=== PATIENT | male | born 1950 | race Caucasian/White ===

== ENCOUNTER 2016-07-10 05:43 | Observation (INO) | payer BC, MEDICARE ==
[2016-07-03 11:10] LABS: BASOPHILS 0.1 %; BASOPHILS ABSOLUTE 0.01 10/3/uL (0.0-0.16); EOSINOPHILS 1.8 %; EOSINOPHILS ABSOLUTE 0.14 10/3/uL (0.0-0.53); HEMATOCRIT 45.6 % (40.0-51.0); HEMOGLOBIN 15.8 g/dL (13.6-17.8); IMMATURE GRANULOCYTES 0.1 %; IMMATURE GRANULOCYTES ABSOLUTE 0.01 10/3/uL (0.0-0.11); LYMPHOCYTES ABSOLUTE 1.83 10/3/uL (0.67-4.30); MEAN CORPUS HGB CONC 34.6 g/dL (32.0-36.0); MEAN CORPUSCULAR VOLUME 89.6 fL (80-100); MONOCYTES 7.1 %; MONOCYTES ABSOLUTE 0.54 10/3/uL (0.21-1.20); NEUTROPHILS 66.9 %; NEUTROPHILS ABSOLUTE 5.09 10/3/uL (2.02-8.40); PLATELET COUNT 202 10/3/uL (150-400); RBC DISTRIBUTION WIDTH 12.8 % (12.0-16.0); RED CELL COUNT 5.09 10/6/uL (4.7-6.1); WHITE BLOOD CELLS 7.6 10/3/uL (4.5-10.5)
[2016-07-03 11:12] LABS: MANUAL DIFF NO %
[2016-07-03 11:15] LABS: INTERNATIONAL NORMAL RATI 1.1 UNITS (-); PARTIAL THROMBO TIME 29.2 SEC (22.5-37.2); PROTIME (NOT ORD) 13.6 SEC (12.0-14.5)
[2016-07-03 11:25] LABS: CHLORIDE, SERUM 104 MMOL/L (96-112); CREATININE 0.77 MG/DL (0.70-1.30); GFR AFRICAN AMERICAN 110 ML/MIN (>=60); GFR NON AFRICAN AMERICAN 95 ML/MIN (>=60); SODIUM, SERUM 143 MMOL/L (135-148)
[2016-07-03 11:26] LABS: BUN (BLOOD UREA NITROGEN) 14 MG/DL (6-23); CALCIUM, SERUM 9.5 MG/DL (8.5-10.4); CO2 (CARBON DIOXIDE) 31 MMOL/L (24-34); GLUCOSE, SERUM 98 MG/DL (60-99)
[2016-07-03 13:34] LABS: ASCORBIC ACID (UR NOT ORDER) 20 (NEG); BILIRUBIN, URINE NEGATIVE (NEG); KETONE, URINE NEGATIVE (NEG); LEUKOCYTE ESTERASE(NOT OR NEG (NEG); WBC (NOT ORDERED) (RFLEX) 1 (0-5)
--- NOTE | ~2016-07-10 | HP ---
History And Physical [address] [place]. [address] NAME: TYRONE MICHEL JR : 52 STATUS : REG [facility]#: [id number] AGE: 66 ADM/REG DATE : 07/10/16 MR#: [id number] REPORT SERV DATE: 07/10/16 DICTATED BY: ANDREW KAT DATE: 07/10/16 REPORT STATUS : Draft TRANSCRIBED BY: MODL DATE: 07/10/16 DATE OF ADMISSION: 07/10/2016 CHIEF COMPLAINT: Adenocarcinoma of the prostate, clinical stage T1c, [place] score 3+4=7, maximum PSA of 6.34. HISTORY OF PRESENT ILLNESS: Mr. Michel is a 66-year-old male recently diagnosed with adenocarcinoma of the prostate. Elevated PSA of 6.34 led to the biopsies. Biopsy revealed Rafa score 3+4 from the left mid and right mid. Different treatment options regarding the management of prostate cancer were proposed to the patient. He decided to proceed with laparoscopic robot-assisted radical prostatectomy. He will be admitted after that procedure. PAST MEDICAL HISTORY: Significant for hypertension. PAST SURGICAL HISTORY: None. MEDICATIONS: Amlodipine, tamsulosin, fish oil, pantoprazole. ALLERGIES: NO KNOWN DRUG ALLERGIES. SOCIAL HISTORY: Denies drug, alcohol, or tobacco abuse. FAMILY HISTORY: Negative for prostate cancer. REVIEW OF SYSTEMS: Negative for strokes, seizures, chest pain, or shortness of breath. Positive for erectile dysfunction. PHYSICAL EXAMINATION: GENERAL: Shows a well-developed, well-nourished white male, in no acute distress. He is awake, alert, and oriented x3. VITAL SIGNS: He is afebrile. His vital signs are stable. HEENT: Sclerae anicteric. NECK: Supple. LUNGS: Clear. HEART: Regular rate and rhythm. ABDOMEN: Soft and nontender. No palpable abdominal masses. : Penis normal. Testes, descended and nontender. Prostate barely palpable. EXTREMITIES: Lower extremities, no deformities. IMPRESSION: Adenocarcinoma of the prostate, clinical stage T1c, Rafa score 3+4=7, maximum PSA of 6.34. PLAN: Laparoscopic robot-assist radical prostatectomy. Potential complications of bleeding, infection, urinary incontinence, bladder neck obstruction, loss of ejaculate, worsened History And Physical [address] [place]. [address] NAME: TYRONE MICHEL JR : 52 STATUS : REG [facility] [place] PAT#: [id number] AGE: 66 ADM/REG DATE : 07/10/16 MR#: [id number] REPORT SERV DATE: 07/10/16 DICTATED BY: ANDREW KAT DATE: 07/10/16 REPORT STATUS : Draft TRANSCRIBED BY: MODL DATE: 07/10/16 erectile dysfunction, and injury to adjacent structures such as bladder, ureters, rectum, colon, intestine, nerves have all been explained to the patient. He both manually and verbally consents to proceed. PF/MODL Andrew Kat M.D. / [id number] CC: Leonardo Kilpatrick PA-C
--- NOTE | ~2016-07-10 | OP ---
Record Of Operation [facility] [address] [place]. [address] NAME: TYRONE MICHEL JR : 52 STATUS : REG [facility] PAT#: [id number] AGE: 66 ADM/REG DATE : 07/10/16 MR#: [id number] REPORT SERV DATE: 07/10/16 DICTATED BY: ANDREW KAT DATE: 07/10/16 REPORT STATUS : Draft TRANSCRIBED BY: MODL DATE: 07/10/16 DATE OF PROCEDURE: 07/10/2016 PREOPERATIVE DIAGNOSIS: Adenocarcinoma of the prostate, clinical stage T1c, [place] score 3+4=7, maximum PSA of 6.34. POSTOPERATIVE DIAGNOSIS: Adenocarcinoma of the prostate, clinical stage T1c, [place] score 3+4=7, maximum PSA of 6.34 PROCEDURE: Laparoscopic robot-assisted radical prostatectomy. SURGEON: Andrew Kat M.D. FLIPPING MACHINE OPERATOR: Americo Lee. ANESTHESIA: General. BLOOD LOSS: Estimated at 100 mL. FLUID REPLACEMENT: 3 L of crystalloid. DRAINS: 18-Belgian Kat catheter per urethra and 15 mm David drain in prevesical space. INDICATION: Mr. Michel is a 66-year-old male, who has recently been diagnosed with adenocarcinoma of the prostate. Different treatment options were proposed to the patient. He has decided to proceed with laparoscopic robot-assisted radical prostatectomy. TECHNIQUE: The patient was identified, brought to the operating room, administered general anesthetic agent by the Anesthesia Service, and intubated. He was positioned in dorsal lithotomy position, appropriately padded, and secured to the table. The abdomen was previously clipped. The entire abdomen, penis, groin, scrotum, and perineum were prepped and draped in usual sterile fashion. A 16-Belgian Kat catheter was passed in the bladder and left to drainage. All laparoscopic port sites were first infiltrated with 0.5% Marcaine plain. Jaky technique was used to place a balloon trocar above the umbilicus. I then placed three robot arm ports and two paperhanger assistant ports under direct vision. Once the ports were in position, da Keiry robot was brought to the table and mated to the ports. Some adhesions between the cecum and the left and the right lower quadrants with the anterior bowel wall were taken down sharply. Adhesions between the sigmoid colon and left pelvic sidewall were taken down sharply. The peritoneum was opened in the cul-de-sac as it overlaid the seminal structures. The left and right vasa deferentia were dissected out, clipped proximally, and transected distally. The left and right seminal vesicles were dissected out. Denonvilliers fascia was opened sharply, and the rectum was swept off the undersurface of the prostate all the way out to the apex. I began to dissect the neurovascular bundles off the posterior pedicles bilaterally. Record Of Operation [facility] [address] [place]. [address] NAME: TYRONE MICHEL JR : 52 STATUS : REG [facility] PAT#: [id number] AGE: 66 ADM/REG DATE : 07/10/16 MR#: [id number] REPORT SERV DATE: 07/10/16 DICTATED BY: ANDREW KAT DATE: 07/10/16 REPORT STATUS : Draft TRANSCRIBED BY: ZURI DATE: 07/10/16 I then divided medial umbilical ligaments and the urachus and swept the bladder off the anterior abdominal wall and symphysis pubis. The peritoneum was opened just lateral to the medial umbilical ligaments on each side of the vasa deferentia bilaterally. Fat overlying the prostate gland was taken off with sharp dissection. The endopelvic fascia was pierced sharply at the prostatovesical junction and carried distally out to the puboprostatic ligaments bilaterally. Attachments of the striated sphincter were taken sharply off the apex of the prostate. The dorsal venous complex was isolated and secured with laparoscopic AUGUSTINE stapling device. It was oversewn with 3-0 PDS. I then mobilized neurovascular bundles off the apex of the prostate bilaterally all the way back to the posterior pedicles bilaterally. I switched to a 30-degree down lens and developed a plane between the bladder neck and the prostate. I opened the anterior bladder neck and elevated the Kat catheter and came to the posterior bladder neck. I carried the dissection down and exposed the seminal structures. The posterior pedicles were secured with locking clips and divided. Last attachments of the striated sphincter were taken off the apex of the prostate sharply. The urethra was divided sharply, and the posterior striated sphincter was divided. The specimen was now free. It was inspected, appeared intact, placed in a specimen retrieval bag and held for later retrieval. I lowered the abdominal pressure down to 7 mmHg and held it there for the next 10 minutes. The pelvis was irrigated copiously. I oversewed part of the right posterior pedicle. I then performed a posterior reconstruction in two layers using 3-0 V-Loc. I then reconstructed the bladder neck by placing horizontal mattress sutures of 3-0 Monocryl at the 3 o'clock and 9 o'clock positions. I then did a modified van Velthoven vesicourethral anastomosis with a 3-0 V-Loc. When the anastomosis was complete, I inserted a new 18-Belgian Kat catheter. 15 mL of sterile water were inflated in the catheter balloon. The anastomosis was tested, there was a little bit of leakage. The bladder was drained. The instrument was taken out of the robot arm port, and a 15 mm David drain was placed through that port and left in prevesical space. The da Keiry robot was undocked. I transferred the string of the specimen bag out through the umbilical port. The paperhanger assistant 12 mm port was removed, and the fascia there was closed with a Giovanni-Suzanne endoscopic closure system. Under low pressure, the other port sites were removed. The patient was taken out of Trendelenburg. I had to extend my fascial incision by 1 cm in each direction at the midline. I then delivered the specimen out through the wound. The fascia was closed with [id number] Vicryl sutures. The subcutaneous tissue of all ports was irrigated copiously, and the deep ports were closed with 3-0 Vicryl. The skin of all ports was closed with 4-0 Monocryl. Dressings were applied. The catheter was secured. The patient was awakened and taken to the recovery unit in stable and satisfactory condition. Record Of Operation [facility] [address] [place]. [address] NAME: TYRONE MICHEL : 52 STATUS : REG [facility] PAT#: [id number] AGE: 66 ADM/REG DATE : 07/10/16 MR#: [id number] REPORT SERV DATE: 07/10/16 DICTATED BY: ANDREW KAT DATE: 07/10/16 REPORT STATUS : Draft TRANSCRIBED BY: MODL DATE: 07/10/16 PF/ZURI Andrew Kat M.D. / [id number] CC: Leonardo Kilpatrick PA-C
[~2016-07-10 05:43] MED LIST: FISH-EPA1000 MG PO; FOCUS FACTOR; NORV5 PO; PR25 PO; PROTONIX PO; SUCR PO; VITC500 PO; ZESTORETIC PO
[2016-07-11 06:27] LABS: HEMATOCRIT 40.5 % (40.0-51.0); HEMOGLOBIN 13.8 g/dL (13.6-17.8)
[2016-07-11 06:39] LABS: BUN (BLOOD UREA NITROGEN) 10 MG/DL (6-23); CALCIUM, SERUM 8.3 MG/DL (8.5-10.4); CHLORIDE, SERUM 106 MMOL/L (96-112); CO2 (CARBON DIOXIDE) 28 MMOL/L (24-34); CREATININE 0.85 MG/DL (0.70-1.30); GFR AFRICAN AMERICAN 106 ML/MIN (>=60); GFR NON AFRICAN AMERICAN 91 ML/MIN (>=60); GLUCOSE, SERUM 137 MG/DL (60-99); POTASSIUM, SERUM 4.5 MMOL/L (3.5-5.3); SODIUM, SERUM 142 MMOL/L (135-148)
[2016-07-11] MEDS ORDERED: XODOL 10-300 T1 EACH PO (08:19)
== END 2016-07-11 11:46 | disposition home or self-care (01) ==
LOC: SDC 05:43 → 4SO 16:17
PROVIDERS: Urology
PROC: 8E0W4CZ Robotic Assisted Procedure of Trunk Region, Percutaneous Endoscopic Approach (ICD-10-PCS; 2016-07-10)
PROC: 0VT04ZZ Resection of Prostate, Percutaneous Endoscopic Approach (ICD-10-PCS; principal; 2016-07-10 06:30)
DX: C61 Malignant neoplasm of prostate (principal); I10 Essential (primary) hypertension; K21.9 Gastro-esophageal reflux disease without esophagitis; E66.9 Obesity, unspecified; Z79.899 Other long term (current) drug therapy; Z68.31 Body mass index [BMI] 31.0-31.9, adult; Z98.890 Other specified postprocedural states
CPT/HCPCS: 80048; 81001; 83735; 85014; 85018; 85025; 85610; 85730; 88309; 93005; 96372; A9270-GY; G0378; J0690; J2250; J2270; J2405; J2710; J3010